=== PATIENT | male | born 1965 | race Caucasian/White ===

== ENCOUNTER 2022-08-14 08:32 | Inpatient (IN) | payer MEDICAID ==
[~2022-08-14] VITALS: Ht 193 cm; Wt 127.0 kg
[2022-08-14 09:34] LABS: BASOPHILS % (AUTO) 1.1 % (0-1); EOSINOPHILS # (AUTO) 0.1 X10'3 (0-0.9); EOSINOPHILS % (AUTO) 3.9 % (0-6); HEMATOCRIT 47.5 % (42.0-52.0); LYMPHOCYTES # (AUTO) 1.3 X10'3 (1.1-4.8); MEAN CORPUSCULAR HEMOGLOBIN 31.4 PG (27.0-31.0); MEAN CORPUSCULAR HGB CONC 33.7 g/dL (33.0-36.5); MEAN PLATELET VOLUME 7.7 FL (7.4-10.4); MONOCYTES # (AUTO) 0.4 X10'3 (0-0.9); MONOCYTES % (AUTO) 10.9 % (2-12); NEUTROPHILS # (AUTO) 1.9 X10'3 (1.8-7.7); NEUTROPHILS % (AUTO) 50.1 % (42-75); PLATELET COUNT 183 X10'3 (140-440); RED BLOOD COUNT 5.11 X10'6 (4.70-6.10); RED CELL DISTRIBUTION WIDTH 13.8 % (11.5-14.5); WHITE BLOOD COUNT 3.8 X10'3 (4.5-11.0)
[2022-08-14 09:41] LABS: ALANINE AMINOTRANSFERASE 27 U/L (12-78); ALBUMIN 3.7 G/DL (3.4-5.0); ALBUMIN/GLOBULIN RATIO 1.2 (1.1-1.5); ALKALINE PHOSPHATASE 68 IU/L (46-116); ANION GAP 11 (8-16); ASPARTATE AMINO TRANSFERASE 23 U/L (10-37); BILIRUBIN,TOTAL 0.6 MG/DL (0.1-1.0); BLOOD UREA NITROGEN 8 MG/DL (7-18); BUN/CREATININE RATIO 7.8 (5.4-32.0); CALCIUM 9.5 MG/DL (8.5-10.1); CHLORIDE 101 MMOL/L (99-107); CREATININE 1.02 MG/DL (0.60-1.10); GLUCOSE 139 MG/DL (70-104); MAGNESIUM 1.6 MG/DL (1.5-2.4); POTASSIUM 3.7 MMOL/L (3.5-5.1); SODIUM 137 MMOL/L (135-145); TOTAL CARBON DIOXIDE 25.1 MMOL/L (24-32); TOTAL PROTEIN 6.8 G/DL (6.4-8.2); eGFR 76 ML/MIN
[2022-08-14] MEDS ORDERED: nitroGLYCERIN 0.4mg/hour patch TD ONE (10:20)
[2022-08-14 10:35] LABS: D-DIMER 0.69 MG/L FEU (0-0.50)
[2022-08-14] MEDS: calcium carbonate 500mg chew tablet PO SCH (11:18)
[2022-08-14] MEDS ORDERED: heparin 10,000 units/1 ML INJ IV ONE ×2 (12:05→12:15)
[2022-08-14] MEDS ORDERED: nitroGLYCERIN-Tridil 50MG/D5W 250 ML IV PRN (12:05)
[2022-08-14] MEDS ORDERED: heparin 25,000 UNIT/250ml bag 250 ML IV PRN (12:05)
[2022-08-14] MEDS ORDERED: magnesium 4gm in 100ml NS 100 ML IV PRN (15:40)
[2022-08-14] MEDS ORDERED: potassium Cl 40MEQ/1/2NS 520ml 520 ML IV PRN (15:40)
[2022-08-14] MEDS ORDERED: PERFLUTREN PROTEIN-A MICROSPHR (Optison) 0.22 MG/ML 3ML VIAL IV ONE (15:40)
[2022-08-14] MEDS ORDERED: acetaminophen 650mg rectal suppository RC PRN (15:40)
[2022-08-14] MEDS ORDERED: HYDROcodone/acetaminophen 5mg/325mg tablet PO PRN (15:40)
[2022-08-14] MEDS ORDERED: magnesium hydroxide 30ml (MOM) UD suspension PO PRN (15:40)
[2022-08-14] MEDS ORDERED: ondansetron/PF 4mg/2ml inj IV PRN (15:40)
[2022-08-14] MEDS ORDERED: acetaminophen 325mg tablet PO PRN ×2 (15:40)
[2022-08-14] MEDS ORDERED: atorvastatin 10mg tablet PO SCH (15:40)
[2022-08-14] MEDS ORDERED: morphine 2 MG/ML inj. syringe IV PRN ×2 (15:40)
[2022-08-14] MEDS ORDERED: HYDROcodone/acetaminophen 10/325mg tab PO PRN (15:40)
[2022-08-14] MEDS ORDERED: magnesium Cl slow-release 64mg tablet PO PRN (15:40)
[2022-08-14] MEDS ORDERED: mag hydrox/Alum hydrox/simeth 30ml oral suspension PO PRN (15:40)
[2022-08-14] MEDS ORDERED: potassium Cl 20 mEq SR tablet PO PRN ×2 (15:40)
[2022-08-14] MEDS ORDERED: diphenhydrAMINE 25mg capsule PO PRN (15:40)
[2022-08-14] MEDS ORDERED: bisacodyl 10mg suppository rectal RC PRN (15:40)
[2022-08-14] MEDS: normal saline 1000ml 1,000 ML IV SCH (15:51)
[2022-08-14] MEDS: aspirin 81mg, enteric-coated 1 TAB TABLET.DR PO SCH (15:51)
[2022-08-14 16:21] LABS: HEMOGLOBIN A1C 5.3 % (4.5-6.2)
[2022-08-14 19:22] LABS: APTT 48 SECONDS (22-32)
[2022-08-14] MEDS: docusate sod 100mg capsule PO SCH (20:00)
[2022-08-14] MEDS: K and/or MAG REPLACEMENT MC SCH (20:00)
--- NOTE | 2022-08-14 20:08 | NUR ---
Nitro Drip cancelled per Hospitalist. Medication not needed. Nitro patch in place.
[2022-08-14 21:00] VITALS: BP 137/81
[2022-08-14] MEDS: metoprolol tartrate 25mg tablet PO SCH (22:04)
[2022-08-15] VITALS (12 sets, daily range): BP systolic 105–144; BP diastolic 63–82
[2022-08-15 02:18] LABS: APTT 37 SECONDS (22-32)
[2022-08-15] MEDS ORDERED: heparin 10,000 units/1 ML INJ IV PRN (02:35)
[2022-08-15] MEDS: normal saline 1000ml 1,000 ML IV SCH (05:34)
[2022-08-15 07:00] LABS: BASOPHILS # (AUTO) 0.1 X10'3 (0-0.2); BASOPHILS % (AUTO) 1.4 % (0-1); EOSINOPHILS # (AUTO) 0.1 X10'3 (0-0.9); EOSINOPHILS % (AUTO) 2.5 % (0-6); HEMATOCRIT 46.6 % (42.0-52.0); HEMOGLOBIN 15.7 g/dl (14.0-17.9); LYMPHOCYTES # (AUTO) 1.3 X10'3 (1.1-4.8); LYMPHOCYTES % (AUTO) 25.8 % (21-51); MEAN CORPUSCULAR HEMOGLOBIN 31.5 PG (27.0-31.0); MEAN CORPUSCULAR HGB CONC 33.8 g/dL (33.0-36.5); MEAN CORPUSCULAR VOLUME 93.4 FL (78-98); MEAN PLATELET VOLUME 7.8 FL (7.4-10.4); MONOCYTES # (AUTO) 0.5 X10'3 (0-0.9); MONOCYTES % (AUTO) 9.8 % (2-12); NEUTROPHILS % (AUTO) 60.5 % (42-75); PLATELET COUNT 154 X10'3 (140-440); RED BLOOD COUNT 4.99 X10'6 (4.70-6.10); RED CELL DISTRIBUTION WIDTH 13.9 % (11.5-14.5)
[2022-08-15 07:21] LABS: ALANINE AMINOTRANSFERASE 19 U/L (12-78); ALBUMIN 3.7 G/DL (3.4-5.0); ALBUMIN/GLOBULIN RATIO 1.3 (1.1-1.5); ALKALINE PHOSPHATASE 65 IU/L (46-116); ANION GAP 9 (8-16); ASPARTATE AMINO TRANSFERASE 33 U/L (10-37); BILIRUBIN,TOTAL 0.8 MG/DL (0.1-1.0); BLOOD UREA NITROGEN 6 MG/DL (7-18); BUN/CREATININE RATIO 7.6 (5.4-32.0); CALCIUM 8.9 MG/DL (8.5-10.1); CHLORIDE 103 MMOL/L (99-107); CHOLESTEROL 197 MG/DL (0-200); CREATININE 0.79 MG/DL (0.60-1.10); GLUCOSE 85 MG/DL (70-104); HDL CHOLESTEROL 49 MG/DL (35-60); LDL CHOLESTEROL 138 MG/DL (50-100); POTASSIUM 3.7 MMOL/L (3.5-5.1); SODIUM 139 MMOL/L (135-145); TOTAL CARBON DIOXIDE 27.4 MMOL/L (24-32); TOTAL PROTEIN 6.5 G/DL (6.4-8.2); TRIGLYCERIDES 64 MG/DL (20-135); eGFR > 90 ML/MIN
[2022-08-15] MEDS: docusate sod 100mg capsule PO SCH ×2 (08:00→20:00)
[2022-08-15] MEDS: aspirin 81mg, enteric-coated 1 TAB TABLET.DR PO SCH (08:00)
[2022-08-15] MEDS: lisinopril 5mg tablet PO SCH (08:00)
[2022-08-15] MEDS: K and/or MAG REPLACEMENT MC SCH ×2 (08:00→20:00)
[2022-08-15] MEDS: metoprolol tartrate 25mg tablet PO SCH ×2 (09:09→20:54)
[2022-08-15] MEDS: atorvastatin 10mg tablet PO SCH (09:09)
--- NOTE | 2022-08-15 10:15 | NUR ---
paged Dr. Vergara re: pt had critical trop of 1219 up from [id number]. on heparin gtt and i believe is going for a cath today
[2022-08-15] MEDS: calcium carbonate 500mg chew tablet PO SCH (11:05)
--- NOTE | 2022-08-15 11:47 | NUR ---
paged Dr. Vergara re: pt states he takes prevacid at home. can we start him on protonix?
[2022-08-15] MEDS ORDERED: nitroGLYCERIN-Tridil 50MG/D5W 250 ML IV ONE (11:49)
[2022-08-15] MEDS ORDERED: iohexol 350MG/ML 100ml bottle IV ONE ×2 (11:50→13:00)
[2022-08-15] MEDS ORDERED: heparin 1,000unit/ml 10ml vial 10 ML ONE (11:50)
[2022-08-15] MEDS ORDERED: LIDOcaine 1% (10mg/ml) 2ml vial ONE (11:50)
[2022-08-15] MEDS ORDERED: iohexol 350 MG/ML 50ML vial IV ONE (11:50)
[2022-08-15] MEDS ORDERED: midazolam 1 mg/ML 2ml injection ONE (11:50)
[2022-08-15] MEDS ORDERED: FENTANYL CITRATE/PF 50 MCG/1 ML VIAL ONE (11:50)
[2022-08-15] MEDS ORDERED: verapamil 2.5 mg/ml inj IV ONE (11:50)
[2022-08-15] MEDS ORDERED: heparin 25,000 UNIT/250ml bag 250 ML IV ONE (12:46)
[2022-08-15] MEDS ORDERED: HYDROmorphone 1 mg/ml syringe ONE (13:34)
[2022-08-15] MEDS ORDERED: clopidogrel 300mg tablet ONE (13:40)
[2022-08-15] MEDS ORDERED: normal saline 1000ml 1,000 ML IV SCH (14:00)
[2022-08-15] MEDS: pantoprazole 40mg Tablet.DR PO SCH (14:31)
[2022-08-15] MEDS ORDERED: PERFLUTREN PROTEIN-A MICROSPHR (Optison) 0.22 MG/ML 3ML VIAL IV ONE (15:15)
[2022-08-15] MEDS ORDERED: LANS15TA5 PO (17:44)
[2022-08-15] MEDS ORDERED: LISINOPRIL (17:44)
[2022-08-15] MEDS ORDERED: METOPROLOL (17:44)
[2022-08-16 03:09] VITALS: BP 121/78
[2022-08-16 06:00] VITALS: BP 132/78
[2022-08-16 07:08] LABS: BASOPHILS # (AUTO) 0.1 X10'3 (0-0.2); BASOPHILS % (AUTO) 1.5 % (0-1); EOSINOPHILS # (AUTO) 0.2 X10'3 (0-0.9); EOSINOPHILS % (AUTO) 3.6 % (0-6); HEMATOCRIT 43.8 % (42.0-52.0); HEMOGLOBIN 14.7 g/dl (14.0-17.9); LYMPHOCYTES # (AUTO) 1.2 X10'3 (1.1-4.8); LYMPHOCYTES % (AUTO) 27.6 % (21-51); MEAN CORPUSCULAR HEMOGLOBIN 31.3 PG (27.0-31.0); MEAN CORPUSCULAR HGB CONC 33.6 g/dL (33.0-36.5); MEAN CORPUSCULAR VOLUME 93.2 FL (78-98); MEAN PLATELET VOLUME 7.4 FL (7.4-10.4); MONOCYTES # (AUTO) 0.5 X10'3 (0-0.9); MONOCYTES % (AUTO) 10.9 % (2-12); NEUTROPHILS # (AUTO) 2.5 X10'3 (1.8-7.7); NEUTROPHILS % (AUTO) 56.4 % (42-75); PLATELET COUNT 151 X10'3 (140-440); RED CELL DISTRIBUTION WIDTH 13.9 % (11.5-14.5); WHITE BLOOD COUNT 4.5 X10'3 (4.5-11.0)
[2022-08-16] MEDS: pantoprazole 40mg Tablet.DR PO SCH (07:27)
[2022-08-16 07:28] VITALS: BP_SYST 132
[2022-08-16] MEDS: lisinopril 5mg tablet PO SCH (07:28)
[2022-08-16] MEDS: metoprolol tartrate 25mg tablet PO SCH (07:28)
[2022-08-16] MEDS: atorvastatin 10mg tablet PO SCH (07:28)
[2022-08-16] MEDS: aspirin 81mg, enteric-coated 1 TAB TABLET.DR PO SCH (07:28)
[2022-08-16] MEDS: docusate sod 100mg capsule PO SCH (07:34)
[2022-08-16 07:42] LABS: ALANINE AMINOTRANSFERASE 19 U/L (12-78); ALBUMIN 3.3 G/DL (3.4-5.0); ALBUMIN/GLOBULIN RATIO 1.2 (1.1-1.5); ALKALINE PHOSPHATASE 60 IU/L (46-116); ANION GAP 5 (8-16); ASPARTATE AMINO TRANSFERASE 30 U/L (10-37); BILIRUBIN,TOTAL 0.7 MG/DL (0.1-1.0); BLOOD UREA NITROGEN 9 MG/DL (7-18); BUN/CREATININE RATIO 11.5 (5.4-32.0); CALCIUM 8.2 MG/DL (8.5-10.1); CHLORIDE 105 MMOL/L (99-107); CREATININE 0.78 MG/DL (0.60-1.10); GLUCOSE 87 MG/DL (70-104); MAGNESIUM 2.1 MG/DL (1.5-2.4); PHOSPHORUS 2.4 MG/DL (2.3-4.5); POTASSIUM 4.4 MMOL/L (3.5-5.1); SODIUM 139 MMOL/L (135-145); TOTAL CARBON DIOXIDE 29.1 MMOL/L (24-32); eGFR > 90 ML/MIN
[2022-08-16] MEDS: K and/or MAG REPLACEMENT MC SCH (07:46)
[2022-08-16] MEDS ORDERED: clopidogrel 75mg tablet PO SCH (08:00)
[2022-08-16] MEDS: calcium carbonate 500mg chew tablet PO SCH (11:05)
[2022-08-16] MEDS ORDERED: ASPI-1071 PO (11:42)
[2022-08-16] MEDS ORDERED: ATOR20TA66 PO (11:42)
[2022-08-16] MEDS ORDERED: LOP25T PO (11:42)
[2022-08-16] MEDS ORDERED: CLOP75TA34 PO (11:42)
[2022-08-16] MEDS ORDERED: LISI5TAB22 PO (11:42)
--- NOTE | 2022-08-16 15:20 | NUR ---
pt discharged in stable condition home. pt walked self to lobby. pt with plavix prescription in person. discharge instructions, education, and prescriptions reviewed with pt. all questions/concerns addressed. IV and tele discontinued.
== END 2022-08-16 15:18 | disposition home or self-care (01) | DRG 174 ==
LOC: ER 08:32 → ED HOLD 15:41 → EDBEDREQ 18:59 → PCU 3S 20:20
PROVIDERS: ADMIT Family Medicine; ATTEND Family Medicine
PROC: 4A023N7 Measurement of Cardiac Sampling and Pressure, Left Heart, Percutaneous Approach (ICD-10-PCS; principal; 2022-08-15)
PROC: 027034Z Dilation of Coronary Artery, One Artery with Drug-eluting Intraluminal Device, Percutaneous Approach (ICD-10-PCS; 2022-08-15)
PROC: B2111ZZ Fluoroscopy of Multiple Coronary Arteries using Low Osmolar Contrast (ICD-10-PCS; 2022-08-15)
PROC: B2151ZZ Fluoroscopy of Left Heart using Low Osmolar Contrast (ICD-10-PCS; 2022-08-15)
DX: I21.4 Non-ST elevation (NSTEMI) myocardial infarction (principal); E66.9 Obesity, unspecified; Z20.822 Contact with and (suspected) exposure to COVID-19; E78.00 Pure hypercholesterolemia, unspecified; I10 Essential (primary) hypertension; K21.9 Gastro-esophageal reflux disease without esophagitis; M48.00 Spinal stenosis, site unspecified; I24.9 Acute ischemic heart disease, unspecified; M54.9 Dorsalgia, unspecified; M41.9 Scoliosis, unspecified; I25.10 Atherosclerotic heart disease of native coronary artery without angina pectoris; I25.2 Old myocardial infarction; Z28.310 Unvaccinated for COVID-19; Z79.82 Long term (current) use of aspirin; Z82.3 Family history of stroke; Z82.49 Family history of ischemic heart disease and other diseases of the circulatory system; Z82.5 Family history of asthma and other chronic lower respiratory diseases; Z91.199 Patient's noncompliance with other medical treatment and regimen due to unspecified reason; Z95.5 Presence of coronary angioplasty implant and graft; Z68.34 Body mass index [BMI] 34.0-34.9, adult
CPT/HCPCS: 36415; 71045; 80053; 80061; 83036; 83735; 83880; 84100; 84484; 85025; 85347; 85379; 85730; 87081; 87502; 87503; 87635; 93306; 93458; 99152; 99153; 99285; A6258; C1725; C1751; C1769; C1874; C1894; C9600; G0378; J1170; J1644; J2250; J3010; J3490; J7030; Q9967